=== PATIENT | female | born 1980 | race Caucasian/White ===

== ENCOUNTER → 2016-10-05 | Outpatient (CLI) | payer OTHER | LOC: FIMAGING 14:00 | PROVIDERS: ATTEND Obstetrics & Gynecology | DX: O35.2XX1 Maternal care for (suspected) hereditary disease in fetus, fetus 1 (principal); Z3A.12 12 weeks gestation of pregnancy ==

== ENCOUNTER → 2016-11-23 | Outpatient (CLI) | payer OTHER | LOC: FIMAGING 13:25 | PROVIDERS: ATTEND Obstetrics & Gynecology | DX: Z34.92 Encounter for supervision of normal pregnancy, unspecified, second trimester (principal); Z3A.19 19 weeks gestation of pregnancy; Z14.1 Cystic fibrosis carrier ==

== ENCOUNTER → 2017-06-22 | Outpatient (CLI) | payer BC | LOC: FLACT 12:40 | PROVIDERS: ATTEND Obstetrics & Gynecology | DX: Z39.1 Encounter for care and examination of lactating mother (principal) | CPT/HCPCS: G0463 ==